=== PATIENT | male | born 2000 | race Caucasian/White ===

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

== ENCOUNTER → 2021-04-02 07:36 | Outpatient (CLI) | payer OTHER, MEDICAID, SELFPAY ==
--- NOTE | 2021-04-02 07:38 | DI.RAD.S_ITS ---
PROCEDURE: XR SHOULDER LT MIN 2V INDICATIONS: L shoulder pain post fall on left side TECHNIQUE: 3 views of the shoulder were acquired. COMPARISON: [facility], CR, XR SHOULDER LT MIN 2V, 10/11/2018, 19:29. FINDINGS: Bones: No fractures or dislocations. No suspicious bony lesions. Visualized ribs appear intact. Soft tissues: No suspicious soft tissue calcifications. IMPRESSION: No acute osseous abnormalities. If clinical symptoms persist or clinical suspicion for internal deranged is high, MRI is suggested for further evaluation. Dictated by: Chantell Gil M.D. on 04/02/2021 at 8:14 Approved by: Chantell Gil M.D. on 04/02/2021 at 8:15
--- NOTE | 2021-04-02 07:38 | DI.RAD.S_ITS ---
PROCEDURE: XR CHEST 2V INDICATIONS: L lower rib pain post fall TECHNIQUE: 2 views of the chest were acquired. COMPARISON: [facility], , CHEST 1 VIEW, 09/05/2017, 16:09. FINDINGS: Surgical changes and devices: None. Lungs and pleura: Lungs are clear. No pleural effusions or pneumothorax. Mediastinum: Mediastinal contours are normal. Heart size is normal. Bones and chest wall: No suspicious bony abnormalities. Soft tissues appear unremarkable. IMPRESSION: No acute cardiopulmonary disease. No displaced left rib fractures visualized. Dictated by: Chantell Gil M.D. on 04/02/2021 at 8:10 Approved by: Chantell Gil M.D. on 04/02/2021 at 8:11
== END ==
PROVIDERS: PCP Family Medicine; Referring Provider Nurse Practitioner; Visit Provider Nurse Practitioner
DX: R07.81 Pleurodynia (principal)
CPT/HCPCS: 71046; 73030

== ENCOUNTER 2022-10-03 14:58 | Emergency (ER) | payer OTHER, MEDICAID, SELFPAY ==
[2022-10-03 15:40] VITALS: BP 123/69; PULSE 68; RESP 16; TEMP 36.7; O2SAT 100; BMI 20.7
--- NOTE | 2022-10-03 16:10 | DI.RAD.S_ITS ---
PROCEDURE: XR CHEST 1V INDICATIONS: altered mental status TECHNIQUE: One view of the chest was acquired. COMPARISON: [facility], CR, XR CHEST 2V, 04/02/2021, 7:41. FINDINGS: Surgical changes and devices: None. Lungs and pleura: Lungs are clear. No pleural effusions or pneumothorax. Mediastinum: Mediastinal contours appear normal. Heart size is normal. Bones and chest wall: No suspicious bony lesions. Overlying soft tissues appear unremarkable. IMPRESSION: No acute cardiopulmonary pathology. Dictated by: Luis Enrique Madrid M.D. on 10/03/2022 at 16:46 Approved by: Luis Enrique Madrid M.D. on 10/03/2022 at 16:46
--- NOTE | 2022-10-03 16:10 | DI.CT.S_ITS ---
PROCEDURE: CT HEAD/BRAIN WO CON INDICATIONS: concerns seizure yesterday, altered since TECHNIQUE: Noncontrast 4.5 mm thick angled axial sections acquired from the foramen magnum to the vertex, with coronal and sagittal reformats. For radiation dose reduction, the following was used: automated exposure control, adjustment of mA and/or kV according to patient size. COMPARISON: None. FINDINGS: Image quality: Excellent. CSF spaces: Basal cisterns are patent. No extra-axial fluid collections. Ventricles are normal in size and shape. Brain: No midline shift. No intracranial masses or hemorrhage. De La Cruz-white matter interface is normal. Skull and face: Calvarium and visualized facial bones are intact, without suspicious lesions. Sinuses: Visualized sinuses and mastoids are clear. IMPRESSION: No acute intracranial pathology. Dictated by: Enoc Soto M.D. on 10/03/2022 at 16:46 Approved by: Enoc Soto M.D. on 10/03/2022 at 16:47
[2022-10-03 16:38] LABS: Add Manual Diff / Slide Review NO; Basophils Absolute Auto 0 /uL (0-100); Basophils Percent Auto 0.7 % (0-2); Eosinophils Absolute Auto 100 /uL (0-450); Eosinophils Percent Auto 0.9 % (2-4); Hematocrit 47.4 % (41-53); Hemoglobin 16.1 g/dL (13.5-17.5); Lymphocytes Absolute Auto 2600 /uL (1100-4500); Mean Corpuscular Volume 88.2 fL (80-100); Monocytes Absolute Auto 400 /uL (0-900); Neutrophils Absolute Auto 2700 /uL (1500-7000); Neutrophils Percent Auto 46.4 % (50-75); Platelet Count 248 X10^3/uL (150-400); Red Blood Cell Count 5.37 X10^6/uL (4.5-5.9); Red Cell Distribution Width 13.3 % (11.6-14.8); White Blood Cell Count 5.8 X10^3/uL (4.5-11.0)
[2022-10-03 16:46] LABS: Alanine Aminotransferase 17 IU/L (<50); Albumin 5.1 g/dL (3.5-5.0); Albumin Globulin Ratio 1.1 (1.0-2.8); Alkaline Phosphatase 74 U/L (38-126); Aspartate Aminotransferase 26 IU/L (17-59); Bilirubin Total 0.9 mg/dL (0.2-1.3); Blood Urea Nitrogen 16 mg/dL (9-20); Calcium 9.3 mg/dL (8.4-10.2); Carbon Dioxide 29 mmol/L (22-32); Chloride 102 mmol/L (98-107); Estimated Glomerular Filt Rate > 60 mL/min (>60); Globulin 4.5 g/dL (1.7-4.1); Glucose 93 mg/dL (70-100); HEMOLYSIS 61 (0-50); Sodium 140 mmol/L (137-145); Total Protein 9.6 g/dL (6.3-8.2)
[2022-10-03 18:49] VITALS: BP 141/86; PULSE 81; RESP 18; O2SAT 100
--- NOTE | 2022-10-03 18:50 | PC.NURSE ---
Mom at bedside and translating with sign language. 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 Denies history of seizures. Pt reports he was getting his ears pierced and cannot recall events. Mom witnessed a blank stare and body shaking. Pt reports he feels slow since, low energy. He also reports x1 month of right wrist pain, history of injury to the same wrist, pt moving wrist in all directions without acute pain.
--- NOTE | 2022-10-03 19:39 | ED_ITS ---
HPI - Seizure General Chief Complaint: Seizure Stated Complaint: suspected siezure, not himself today, referred dr Time Seen by Provider: 10/03/22 19:38 Source: patient Mode of arrival: Family Vehicle Limitations: language barrier and other History of Present Illness HPI Narrative: Patient is a 22-year-old male history of juvenile arthritis, periventricular leukomalacia presents today with concern for seizure. 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 They went to get his ears pierced yesterday. After the 2nd 1 she said his head dropped his hands went into fists clenched arms flexed knees and legs were also rigid and he was shaking. It lasted her about 15-30 seconds. He was extremely confused afterwards but was okay. He was able to drive home. Today he woke up just feeling very confused no real headache. He denies any recent illness. He does drink on occasion and use marijuana for his juvenile arthritis. He has no other complaints. Related Data Home Medications Medication Instructions Recorded Confirmed ibuprofen 200 mg tablet See Rx Instructions PO ONCE PRN 03/26/19 12/07/20 Previous Rx's Medication Instructions Recorded DIPHENHYDRAMINE/LIDO VISC/MAALOX See Rx Instructions PO Q4HP PRN 08/23/22 1:1:1 ulcers #240 mL mupirocin 2 % topical ointment 1 applic topical TID #15 grams 09/04/22 Allergies Allergy/AdvReac Type Severity Reaction Status Date / Time azithromycin [AZITHROMYCIN] Allergy Intermediate RASH Unverified 10/03/22 15:49 amoxicillin AdvReac Intermediate diarrhea Verified 10/03/22 15:49 Review of Systems Review of Systems ROS Unobtainable: All systems reviewed & are unremarkable except as noted in HPI and below Patient History Medical History Autistic disorder Juvenile rheumatoid arthritis Social History Smoking Status: Never smoker second hand exposure: No alcohol intake: never substance use type: does not use Smoking Status: Never smoker Substance Use Type: marijuana Exam Initial Vital Signs Initial Vital Signs: Vital Signs Temperature 98.0 F 10/03/22 15:40 Pulse Rate 68 10/03/22 15:40 Respiratory Rate 16 10/03/22 15:40 Blood Pressure 123/69 10/03/22 15:40 Pulse Oximetry 100 10/03/22 15:40 Oxygen Delivery Method Room Air 10/03/22 15:40 GENERAL: Alert well-appearing 22-year-old male HEENT: Head atraumatic,EOMI, pupils reactive, face symmetric, moist mucous membranes CARDIOVASCULAR: Regular rate and rhythm without murmurs, rubs or gallops. RESPIRATORY: Breath sounds equal bilaterally, no wheezes rales or rhonchi. EXTREMITIES: Normal range of motion, no clubbing or edema. Neurovascularly intact NEUROLOGICAL: Alert and oriented x4.Normal gait and speech. Cranial nerves II through XII grossly intact. SKIN: Warm, dry, no laceration, no petechiae, no rashes or lesions. Course Orders Ordered: ED Orders 10/03/22 16:10 CT head/brain wo con Stat XR chest 1V Stat Urine Drug Screen, Rapid Stat 10/03/22 16:24 Complete Blood Count AUTO DIFF Stat Comprehensive Metabolic Panel Stat Vital Signs Vital signs: Vital Signs - 8 hr 10/03/22 15:40 10/03/22 18:49 Temperature 98.0 F Pulse Rate 68 81 Respiratory Rate 16 18 Blood Pressure 123/69 141/86 H Pulse Oximetry 100 100 Oxygen Delivery Method Room Air Room Air MDM - Seizure Lab Data 10/03/22 16:24 10/03/22 16:24 Labs: Lab Results 10/03/22 10/03/22 Range/Units 16:24 16:24 WBC 5.8 (4.5-11.0) X10^3/uL RBC 5.37 (4.5-5.9) X10^6/uL Hgb 16.1 (13.5-17.5) g/dL Hct 47.4 (41-53) % MCV 88.2 (80-100) fL MCH 30.0 (26-34) PG MCHC 34.0 (30-36) % RDW 13.3 (11.6-14.8) % Plt Count 248 (150-400) X10^3/uL Neut % (Auto) 46.4 L (50-75) % Lymph % (Auto) 45.0 H (25-40) % Ada % (Auto) 7.0 (3-14) % Eos % (Auto) 0.9 L (2-4) % Baso % (Auto) 0.7 (0-2) % Neut # (Auto) 2700 (1551-3490) /uL Lymph # (Auto) 2600 (5386-5669) /uL Ada # (Auto) 400 (0-900) /uL Eos # (Auto) 100 (0-450) /uL Baso # (Auto) 0 (0-100) /uL Sodium 140 (137-145) mmol/L Potassium 4.0 (3.4-5.1) mmol/L Chloride 102 (98-107) mmol/L Carbon Dioxide 29 (22-32) mmol/L BUN 16 (9-20) mg/dL Creatinine 0.94 (0.66-1.25) mg/dL Estimated GFR > 60 (>60) mL/min BUN/Creatinine Ratio 17.0 (6-22) Glucose 93 (70-100) mg/dL Calcium 9.3 (8.4-10.2) mg/dL Total Bilirubin 0.9 (0.2-1.3) mg/dL AST 26 (17-59) IU/L ALT 17 (<50) IU/L Alkaline Phosphatase 74 (38-126) U/L Total Protein 9.6 H (6.3-8.2) g/dL Albumin 5.1 H (3.5-5.0) g/dL Globulin 4.5 H (1.7-4.1) g/dL Albumin/Globulin Ratio 1.1 (1.0-2.8) Urine Dip Bedside Urine Glucose Negative Bedside Urine Bilirubin - Negative Bedside Urine Ketone - Negative Urine Specific [place] 1.015 Bedside Urine Occult Blood - Negative Bedside Urine pH 6.0 Bedside Urine Protein - Negative Bedside Urine Urobilinogen - Negative Bedside Urine Nitrite - Negative Bedside Urine Leukocytes - Negative Esterase Imaging Data CT scan - head: Radiologist's Impression: PROCEDURE:? CT HEAD/BRAIN WO CON ? INDICATIONS:? concerns seizure yesterday, altered since ? TECHNIQUE:? Noncontrast 4.5 mm thick angled axial sections acquired from the foramen magnum to the vertex, with coronal and sagittal reformats.? For radiation dose reduction, the following was used:? automated exposure control, adjustment of mA and/or kV according to patient size.? ? COMPARISON:? None. ? FINDINGS:? Image quality:? Excellent.? ? CSF spaces:? Basal cisterns are patent.? No extra-axial fluid collections.? Ventricles are normal in size and shape.? ? Brain:? No midline shift.? No intracranial masses or hemorrhage.? De La Cruz-white matter interface is normal.? ? Skull and face:? Calvarium and visualized facial bones are intact, without suspicious lesions.? ? Sinuses:? Visualized sinuses and mastoids are clear.? ? IMPRESSION:? No acute intracranial pathology.? ? ? Dictated by: Enoc Soto M.D. on 10/03/2022 at 16:46 ?? Chest x-ray: Radiologist's Impression: PROCEDURE:? XR CHEST 1V ? INDICATIONS:? altered mental status ? TECHNIQUE:? One view of the chest was acquired.? ? COMPARISON:? [facility], CR, XR CHEST 2V, 04/02/2021, 7:41. ? FINDINGS:? ? Surgical changes and devices:? None.? ? Lungs and pleura:? Lungs are clear.? No pleural effusions or pneumothorax.? ? Mediastinum:? Mediastinal contours appear normal.? Heart size is normal.? ? Bones and chest wall:? No suspicious bony lesions.? Overlying soft tissues appear unremarkable.? ? IMPRESSION:? No acute cardiopulmonary pathology. ? ? Dictated by: Luis Ernique Madrid M.D. on 10/03/2022 at 16:46 MDM Narrative Medical decision making narrative: The patient had a possible vasovagal episode versus seizure-like activity yeste rday. Prolactin would be unhelpful today saying his the event happened yesterday. Head CT blood work overall reassuring. Due to the rigidness shaking and postictal like state I have suspicion for seizure. He does not drink alcohol light no other causes of seizure. Difficult to say if his perive ntricular leukomalacia has please a role in it or not. He was discharged from Neurology years ago. Recommend that he see a new neurologist and return if he has a recurrent seizure. Blood work show anemia electrolyte abnormality or NEO Discharge Plan Departure Patient Disposition: Home Clinical Impression: New onset seizure Instructions: DI for Seizure Disorder -- Adult Activity Restrictions/Additional Instructions: *You have been diagnosed with probable new seizure *What to do: He will need further testing to see if he truly do have a seizure. This will need to happen with neurology. In till then please NO DRIVING, I am so-so sorry. *Continue to take medications as directed *Follow up with your primary care provider in 2-3 days or call [phone] Please call neurology for further evaluation. He may need referral from PCP. *Return to ER if you should have recurrent episode worsening confusion or any new, worsening or concerning symptoms Prescriptions: No Action mupirocin 2 % ointment 1 applic topical TID Qty: 15 0RF DIPHENHYDRAMINE/LIDO VISC/MAALOX 1:1:1 See Rx Instructions PO Q4HP PRN (Reason: ulcers) Qty: 240 0RF Rx Instructions: swish and spit, PO Q4HP PRN; ibuprofen 200 mg tablet See Rx Instructions PO ONCE PRN Rx Instructions: 1 to 2 tabs PO once PRN Referrals: Arleth Millan MD [Primary Care Provider] - Young Arnold MD [Non-Staff] - Stand Alone Forms: Patient Portal/API
[2022-10-03 20:12] VITALS: PULSE 70; O2SAT 98
[2022-10-03 20:15] VITALS: BP 126/78; PULSE 64; O2SAT 99
== END 2022-10-03 21:15 | disposition home or self-care (01) ==
PROVIDERS: Emergency Medicine; Emergency Provider Emergency Medicine; PCP Family Medicine
DX: G40.909 Epilepsy, unspecified, not intractable, without status epilepticus (principal); R41.82 Altered mental status, unspecified
CPT/HCPCS: 36415; 70450; 71045; 80053; 81003; 85025; 99283; 99284